=== PATIENT | male | born 2000 | race Hispanic/Latino ===

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

== ENCOUNTER → 2018-01-27 | Outpatient (REF) | payer BC ==
[2018-01-30 00:07] LABS: HSV IgM TYPES 1&2 <0.91 Ratio (0.00-0.90); HSV TYPE I IgG SPECIFIC <0.91 index (0.00-0.90); HSV TYPE II IgG SPECIFIC <0.91 index (0.00-0.90)
== END ==
LOC: M LAB REF 21:15
DX: Z20.828 Contact with and (suspected) exposure to other viral communicable diseases (principal)
CPT/HCPCS: 86694

== ENCOUNTER 2019-01-12 16:12 | Emergency (ER) | payer BC, OTHER ==
[~2019-01-12] VITALS: Ht 175.3 cm; Wt 77.7 kg
[~2019-01-12 16:12] MED LIST changes: +CYCL10TA PO; +IBUP-1022 PO; +OMEP20CA4; +OSEL75CA PO; +ROBA500T PO
[2019-01-12] MEDS ORDERED: OMEP-221 (16:19)
[2019-01-12 17:00] LABS: BASO # 0.1 10^3/uL (0.0-0.2); BASO % 0.6 % (0.0-1.0); EOS % 0.5 % (0.0-3.0); HEMATOCRIT 46.2 % (42.0-52.0); HEMOGLOBIN 15.3 g/dl (13.5-17.5); LYMPH # 1.8 10^3/uL (1.5-6.5); LYMPH % 20.5 % (24.0-44.0); MEAN CORPUSCULAR HEMOGLOBIN 30.2 pg (27.0-33.0); MEAN CORPUSCULAR HGB CONC 33.1 g/dl (32.0-36.5); MEAN CORPUSCULAR VOLUME 91.1 fl (80.0-96.0); MONO # 0.5 10^3/uL (0.0-0.8); MONO % 5.4 % (0.0-5.0); NEUTROPHILS # 6.3 10^3/uL (1.8-7.7); NEUTROPHILS % 72.9 % (36.0-66.0); PLATELET COUNT, AUTOMATED 217 10^3/uL (150-450); RED BLOOD COUNT 5.07 10^6/uL (4.30-6.10); WHITE BLOOD COUNT 8.7 10^3/uL (4.0-10.0)
[2019-01-12 17:34] LABS: ALBUMIN 4.2 GM/DL (3.2-5.2); ALT/SGPT 46 U/L (12-78); BILIRUBIN,DIRECT 0.3 MG/DL (0.0-0.2); BILIRUBIN,TOTAL 0.8 MG/DL (0.2-1.0); BLOOD UREA NITROGEN 15 MG/DL (7-18); CALCIUM LEVEL 9.2 MG/DL (8.5-10.1); CARBON DIOXIDE LEVEL 30 MEQ/L (21-32); CHLORIDE LEVEL 107 MEQ/L (98-107); CREATININE FOR GFR 0.88 MG/DL (0.70-1.30); GLUCOSE, FASTING 83 MG/DL (70-100); LIPASE 68 U/L (73-393); POTASSIUM SERUM 3.7 MEQ/L (3.5-5.1); SODIUM LEVEL 141 MEQ/L (136-145); TOTAL PROTEIN 7.6 GM/DL (6.4-8.2)
[2019-01-12 18:57] LABS: C REACTIVE PROTEIN QUANTITATIV < 0.30 MG/DL (0.00-0.30)
[2019-01-12] MEDS ORDERED: ISOVUE-370 76% 100ML VIAL (Q9967) As Ordered ONE (19:01)
[2019-01-12 19:17] LABS: ERYTHROCYTE SEDIMENTATION RATE 2 mm/hr (0-15)
[2019-01-12 19:41] VITALS: BP 126/69
--- NOTE | 2019-01-12 20:14 | REPVR ---
EXAM: CT Abdomen and Pelvis With Contrast EXAM DATE/TIME: 01/12/2019 7:04 PM CLINICAL HISTORY: 18 years old, male; Abdominal pain; Generalized; Additional info: Right abd pain TECHNIQUE: Imaging protocol: Axial computed tomography images of the abdomen and pelvis with intravenous contrast. Coronal and sagittal reformatted images were created and reviewed. Radiation optimization: All CT scans at this facility use at least one of these dose optimization techniques: automated exposure control; mA and/or kV adjustment per patient size (includes targeted exams where dose is matched to clinical indication); or iterative reconstruction. Contrast material: ISOVUE 370;Contrast volume: 100 ml;Contrast route: IV; COMPARISON: CT ABD/PEL W/IV CONTRAST ONLY 01/17/2017 9:28 PM FINDINGS: Liver: Normal. No mass. Gallbladder and bile ducts: Possible cholelithiasis. Correlation with ultrasound suggested. Pancreas: Normal. No ductal dilation. Spleen: Normal. No splenomegaly. Adrenals: Normal. No mass. Kidneys and ureters: Normal. No hydronephrosis. Stomach and bowel: Normal. No obstruction. No mucosal thickening. Appendix: No evidence of appendicitis. Intraperitoneal space: Normal. No free air. No significant fluid collection. Vasculature: Normal. No abdominal aortic aneurysm. Lymph nodes: Normal. No enlarged lymph nodes. Bladder: Unremarkable as visualized. Reproductive: The prostate gland demonstrates mild hyperplasia. Bones/joints: Moderate central spinal stenosis L4-5. Soft tissues: Unremarkable. IMPRESSION: 1. Possible cholelithiasis. Correlation with ultrasound suggested. 2. Mild prostatic hyperplasia. Electronically signed by: Nato Kemp On 01/12/2019 20:14:25 PM
[2019-01-12] MEDS ORDERED: PROC1AER16 PR (20:26)
== END 2019-01-12 20:39 | disposition home or self-care (01) ==
LOC: M ED 16:12
DX: K80.50 Calculus of bile duct without cholangitis or cholecystitis without obstruction (principal); K64.9 Unspecified hemorrhoids; K21.9 Gastro-esophageal reflux disease without esophagitis; K50.919 Crohn's disease, unspecified, with unspecified complications; F12.10 Cannabis abuse, uncomplicated; Z79.899 Other long term (current) drug therapy
CPT/HCPCS: 36415; 74177; 80048; 80076; 83690; 85025; 85652; 86140; 99284; Q9967

== ENCOUNTER 2020-04-21 17:06 | Emergency (ER) | payer BC, OTHER ==
[~2020-04-21] VITALS: Ht 177.8 cm; Wt 95.5 kg
[~2020-04-21 17:06] MED LIST changes: +CYCL-707 PO; -CYCL10TA PO; +OMEP-221; +OMEP1CAP73; -OMEP20CA4; +PROC1AER16 PR
[2020-04-21] MEDS ORDERED: LIDOCAINE W/EPINEPHRINE 1% 20ML VIAL As Ordered ONE (19:33)
[2020-04-21] MEDS ORDERED: LIDOCAINE W/EPINEPHRINE 1% 20ML VIAL SC ONE (19:45)
[2020-04-21] MEDS ORDERED: BACT800T5 PO (19:50)
[2020-04-21 19:55] VITALS: BP 145/80
[2020-04-21] MEDS ORDERED: BACTRIM 160MG/800MG DS TAB PO ONE (20:00)
== END 2020-04-21 20:08 | disposition home or self-care (01) ==
LOC: M ED 17:06
DX: L05.01 Pilonidal cyst with abscess (principal); K21.9 Gastro-esophageal reflux disease without esophagitis; K50.90 Crohn's disease, unspecified, without complications; F12.10 Cannabis abuse, uncomplicated

== ENCOUNTER 2021-11-20 21:47 | Emergency (ER) | payer BC, OTHER ==
[~2021-11-20] VITALS: Ht 175.3 cm; Wt 92.4 kg
[~2021-11-20 21:47] MED LIST changes: +BACT800T5 PO; -OMEP-221; +OMEP40CA5
[2021-11-20] MEDS ORDERED: PREV1CAP PO (22:07)
[2021-11-21] MEDS ORDERED: BOOSTRIX/ADACEL VACCINE (DIPHTH/PERTUSS/ACELL/TETANUS) 0.5ML SYR IM ONE (00:25)
[2021-11-21] MEDS ORDERED: LIDOCAINE 2% MDV 20ML VIAL SC ONE (00:25)
[2021-11-21] MEDS ORDERED: CEPH500C PO (01:18)
[2021-11-21 01:25] VITALS: BP 130/86
== END 2021-11-21 01:26 | disposition home or self-care (01) ==
LOC: M ED 21:47
DX: S60.552A Superficial foreign body of left hand, initial encounter (principal); W45.8XXA Other foreign body or object entering through skin, initial encounter; F17.200 Nicotine dependence, unspecified, uncomplicated; F12.10 Cannabis abuse, uncomplicated; Y92.9 Unspecified place or not applicable; Y93.89 Activity, other specified; Y99.9 Unspecified external cause status

== ENCOUNTER → 2022-02-13 | Outpatient (REF) | payer OTHER, BC ==
[~2022-02-13] MED LIST changes: +CEPH500C PO; +PREV1CAP PO
== END ==
LOC: M SFHCDERM 12:51
PROVIDERS: ATTEND Nurse Practitioner Family
DX: D48.9 Neoplasm of uncertain behavior, unspecified (principal)

== ENCOUNTER 2023-09-09 05:33 | Emergency (ER) | payer BC, OTHER ==
[~2023-09-09] VITALS: Ht 175.3 cm; Wt 78.2 kg
[2023-09-09 06:44] LABS: ALBUMIN 3.8 G/DL (3.2-5.2); ALKALINE PHOSPHATASE 78 U/L (46-116); ALT/SGPT 175 U/L (7.0-40); AST/SGOT 111 U/L (<34); BILIRUBIN,DIRECT 0.1 MG/DL (<0.4); BILIRUBIN,TOTAL 0.4 MG/DL (0.3-1.2); BLOOD UREA NITROGEN 20 MG/DL (9-23); CALCIUM LEVEL 8.4 MG/DL (8.5-10.1); CARBON DIOXIDE LEVEL 26 MMOL/L (20-31); CHLORIDE LEVEL 105 MMOL/L (98-107); CREATININE FOR GFR 0.82 MG/DL (0.70-1.30); GLOMERULAR FILTRATION RATE > 60.0 (>60); GLUCOSE, FASTING 118 MG/DL (60-100); LIPASE 54 U/L (12-53); POTASSIUM SERUM 5.1 MMOL/L (3.5-5.1); SODIUM LEVEL 139 MMOL/L (136-145); TOTAL PROTEIN 6.6 G/DL (5.7-8.2)
[2023-09-09] MEDS: NS 1,000 ML IV ONE (06:44)
[2023-09-09] MEDS: MAALOX 30 ML SUSP *UDC PO ONE (06:48)
[2023-09-09] MEDS: GASTROGRAFIN SOLUTION 30ML PO SCH (06:49)
[2023-09-09 07:53] LABS: HEMATOCRIT 39.6 % (42.0-52.0); HEMOGLOBIN 13.2 g/dl (13.5-17.5); MEAN CORPUSCULAR VOLUME 88.8 fl (80.0-96.0); RED BLOOD COUNT 4.46 10^6/uL (4.30-6.10); WHITE BLOOD COUNT 7.8 10^3/uL (4.0-10.0)
[2023-09-09 07:54] LABS: BASO % 0.4 % (0.0-1.0); MEAN CORPUSCULAR HEMOGLOBIN 29.6 pg (27.0-33.0); MEAN CORPUSCULAR HGB CONC 33.3 g/dl (32.0-36.5); MONO % 6.8 % (2.0-8.0); NEUTROPHILS % 73.8 % (36.0-66.0); PLATELET COUNT, AUTOMATED 179 10^3/uL (150-450)
[2023-09-09 07:55] LABS: LYMPH % 17.5 % (24.0-44.0)
[2023-09-09] MEDS ORDERED: ISOVUE-370 76% 100ML VIAL As Ordered ONE (08:00)
[2023-09-09] MEDS ORDERED: AMOX875T2 PO (11:02)
[2023-09-09 11:18] VITALS: BP 167/75; TEMP 98.2; O2SAT 99
[2023-09-10 05:34] LABS: EOS # 0.1 10^3/uL (0.0-0.5); LYMPH # 1.4 10^3/uL (1.5-5.0); MONO # 0.5 10^3/uL (0.0-0.8); NEUTROPHILS # 5.7 10^3/uL (1.5-8.5)
== END 2023-09-09 11:23 | disposition home or self-care (01) ==
LOC: M ED 05:33
DX: K81.0 Acute cholecystitis (principal); Z79.2 Long term (current) use of antibiotics; Z53.9 Procedure and treatment not carried out, unspecified reason
CPT/HCPCS: 74177; 76705; 80053; 81001; 82248; 83690; 85025; 96360; 96361; 99284; Q9963; Q9967

== ENCOUNTER 2024-08-20 23:17 | Emergency (ER) | payer BC ==
[~2024-08-20] VITALS: Ht 175.3 cm; Wt 82.1 kg
[~2024-08-20 23:17] MED LIST changes: +AMOX875T2 PO
[2024-08-21 00:18] LABS: LIPASE 33 U/L (12-53)
[2024-08-21 00:21] LABS: ALBUMIN 4.6 G/DL (3.2-5.2); ALKALINE PHOSPHATASE 103 U/L (40-129); ALT/SGPT 125 U/L (7.0-40); AST/SGOT 47 U/L (<34); BILIRUBIN,DIRECT 0.2 MG/DL (<0.4); BILIRUBIN,TOTAL 0.6 MG/DL (0.3-1.2); BLOOD UREA NITROGEN 27 MG/DL (9-23); CALCIUM LEVEL 9.2 MG/DL (8.5-10.1); CARBON DIOXIDE LEVEL 24 MMOL/L (20-31); CHLORIDE LEVEL 106 MMOL/L (98-107); CREATININE FOR GFR 0.99 MG/DL (0.70-1.30); GLOMERULAR FILTRATION RATE > 60.0 (>60); GLUCOSE, FASTING 101 MG/DL (60-100); POTASSIUM SERUM 3.9 MMOL/L (3.5-5.1); SODIUM LEVEL 143 MMOL/L (136-145); TOTAL PROTEIN 8.1 G/DL (5.7-8.2)
[2024-08-21 00:24] LABS: BASO # 0.1 10^3/uL (0.0-0.2); BASO % 0.6 % (0.0-1.0); EOS # 0.1 10^3/uL (0.0-0.5); EOS % 0.6 % (0.0-3.0); HEMATOCRIT 44.6 % (42.0-52.0); HEMOGLOBIN 15.3 g/dl (13.5-17.5); LYMPH # 3.4 10^3/uL (1.5-5.0); LYMPH % 29.7 % (24.0-44.0); MEAN CORPUSCULAR HEMOGLOBIN 30.5 pg (27.0-33.0); MEAN CORPUSCULAR HGB CONC 34.3 g/dl (32.0-36.5); MEAN CORPUSCULAR VOLUME 88.8 fl (80.0-96.0); MONO # 0.9 10^3/uL (0.0-0.8); MONO % 7.4 % (2.0-8.0); NEUTROPHILS # 7.1 10^3/uL (1.5-8.5); NEUTROPHILS % 61.4 % (36.0-66.0); PLATELET COUNT, AUTOMATED 262 10^3/uL (150-450); RED BLOOD COUNT 5.02 10^6/uL (4.30-6.10); WHITE BLOOD COUNT 11.5 10^3/uL (4.0-10.0)
[2024-08-21 01:16] VITALS: BP 137/66; TEMP 98.8; O2SAT 98
== END 2024-08-21 03:40 | disposition left against medical advice (07) ==
LOC: M ED 23:17
DX: Z53.21 Procedure and treatment not carried out due to patient leaving prior to being seen by health care provider (principal)

== ENCOUNTER → 2024-10-08 | Outpatient (CLI) | payer BC ==
[2024-10-08 12:51] LABS: BASO # 0.1 10^3/uL (0.0-0.2); BASO % 0.9 % (0.0-1.0); EOS # 0.2 10^3/uL (0.0-0.5); EOS % 2.1 % (0.0-3.0); HEMATOCRIT 46.5 % (42.0-52.0); LYMPH # 2.2 10^3/uL (1.5-5.0); LYMPH % 27.8 % (24.0-44.0); MEAN CORPUSCULAR HEMOGLOBIN 29.7 pg (27.0-33.0); MEAN CORPUSCULAR HGB CONC 32.3 g/dl (32.0-36.5); MEAN CORPUSCULAR VOLUME 92.1 fl (80.0-96.0); MONO # 0.7 10^3/uL (0.0-0.8); NEUTROPHILS # 4.8 10^3/uL (1.5-8.5); NEUTROPHILS % 59.9 % (36.0-66.0); PLATELET COUNT, AUTOMATED 231 10^3/uL (150-450); RED BLOOD COUNT 5.05 10^6/uL (4.30-6.10)
[2024-10-08 12:54] LABS: ALKALINE PHOSPHATASE 79 U/L (40-129); ALT/SGPT 52 U/L (7.0-40); AST/SGOT 23 U/L (<34); BILIRUBIN,TOTAL 0.4 MG/DL (0.3-1.2); BLOOD UREA NITROGEN 25 MG/DL (9-23); CALCIUM LEVEL 8.9 MG/DL (8.5-10.1); CARBON DIOXIDE LEVEL 30 MMOL/L (20-31); CHLORIDE LEVEL 105 MMOL/L (98-107); CHOLESTEROL LEVEL 142 MG/DL (<200); CHOLESTEROL RISK RATIO 2.39 (<5); GLOMERULAR FILTRATION RATE > 90.0 (>60); GLUCOSE, FASTING 78 MG/DL (60-100); HDL CHOLESTEROL 59.4 MG/DL (>40); LDL CHOLESTEROL 69.2 MG/DL (<100); NON-HDL-C 82.6 MG/DL; POTASSIUM SERUM 4.3 MMOL/L (3.5-5.1); SODIUM LEVEL 142 MMOL/L (136-145); TOTAL PROTEIN 7.1 G/DL (5.7-8.2); TRIGLYCERIDES LEVEL 67 MG/DL (<150)
[2024-10-08 13:00] LABS: HEMOGLOBIN A1c 5.1 % (4.0-6.0)
== END ==
LOC: M WUC 09:23
PROVIDERS: ATTEND Registered Nurse
DX: Z00.00 Encounter for general adult medical examination without abnormal findings (principal)

== ENCOUNTER 2025-05-19 10:57 | Emergency (ER) | payer BC ==
[~2025-05-19] VITALS: Ht 175.3 cm; Wt 88.6 kg
[~2025-05-19 10:57] MED LIST changes: -IBUP-1022 PO; +IBUP600T42 PO
[2025-05-19] MEDS ORDERED: FAMO-142 PO (11:07)
[2025-05-19] MEDS: NS (Normal Saline) 0.9% 1,000 ML IV ONE (13:17)
[2025-05-19] MEDS: ONDANSETRON 4MG/2ML VIAL IV ONE (13:17)
[2025-05-19 13:30] LABS: BASO # 0.1 10^3/uL (0.0-0.2); BASO % 0.8 % (0.0-1.0); EOS # 0.1 10^3/uL (0.0-0.5); EOS % 1.8 % (0.0-3.0); LYMPH # 1.5 10^3/uL (1.5-5.0); LYMPH % 20.8 % (24.0-44.0); MONO # 0.9 10^3/uL (0.0-0.8); MONO % 12.5 % (2.0-8.0); NEUTROPHILS # 4.5 10^3/uL (1.5-8.5); NEUTROPHILS % 63.8 % (36.0-66.0); PLATELET COUNT, AUTOMATED 250 10^3/uL (150-450)
[2025-05-19 14:28] LABS: ALT/SGPT 877 U/L (7.0-40); AST/SGOT 1121 U/L (<34); CALCIUM LEVEL 9.2 MG/DL (8.5-10.1); CARBON DIOXIDE LEVEL 30 MMOL/L (20-31); CHLORIDE LEVEL 103 MMOL/L (98-107); CREATININE FOR GFR 0.98 MG/DL (0.70-1.30); GLOMERULAR FILTRATION RATE > 90.0 (>60); POTASSIUM SERUM 4.1 MMOL/L (3.5-5.1); SODIUM LEVEL 142 MMOL/L (136-145)
[2025-05-19] MEDS ORDERED: FAMO40TA3 PO (16:58)
[2025-05-19] MEDS ORDERED: IBUP200T46 PO (17:27)
[2025-05-19] MEDS ORDERED: HOME MED LIST COMPLETE! XX SCH (17:30)
[2025-05-19] MEDS: NS (Normal Saline) 0.9% 1,000 ML IV SCH (18:52)
[2025-05-20 01:10] LABS: ALT/SGPT 823.0 U/L (7.0-40); AST/SGOT 591.0 U/L (<34)
[2025-05-20] MEDS ORDERED: ONDA-282 PO (01:14)
[2025-05-20] MEDS: traMADol 50 MG TAB (HOME DOSE PACK) PO ONE (02:19)
[2025-05-20 03:38] VITALS: BP 129/63; TEMP 97.6; O2SAT 95
== END 2025-05-20 03:35 | disposition home or self-care (01) ==
LOC: M ED 10:57
DX: K80.00 Calculus of gallbladder with acute cholecystitis without obstruction (principal); R74.01 Elevation of levels of liver transaminase levels; K86.89 Other specified diseases of pancreas; K58.9 Irritable bowel syndrome, unspecified; K21.9 Gastro-esophageal reflux disease without esophagitis; F12.10 Cannabis abuse, uncomplicated; F17.200 Nicotine dependence, unspecified, uncomplicated; Z79.1 Long term (current) use of non-steroidal anti-inflammatories (NSAID); Z79.899 Other long term (current) drug therapy
CPT/HCPCS: 74181; 76705; 80048; 80076; 83690; 85025; 93005; 96361; 96374; 96375; 99285; J2405; J2765